=== PATIENT | male | born 1950 | race Caucasian/White ===

== ENCOUNTER 2016-07-09 09:04 | Day surgery (SDC) | payer BC ==
--- NOTE | ~2016-07-09 | EGD ---
EGD REPORT [facility] [address] [address] NAME: NIRANJAN MALIK : 54 STATUS : REG [facility]#: [id number] AGE: 65 ADM/REG DATE : 07/09/16 MR#: [id number] REPORT SERV DATE: 07/09/16 DICTATED BY: HERB CLEMENTS DATE: 07/09/16 REPORT STATUS : Draft TRANSCRIBED BY: [employer] DATE: 07/09/16 [facility] Patient Name: Niranjan Malik Date of : 1950 Attending MD: HERB CLEMENTS, Procedure Date No Time: 07/09/2016 Procedure: Upper EUS Indications: Suspected solid pancreatic neoplasm Referring MD: ETHAN Baez MD Medicines: Monitored Anesthesia Care Complications: No immediate complications. Estimated blood loss: None. Procedure: Pre-Anesthesia Assessment: - ASA Grade Assessment: III - A patient with severe systemic disease. After obtaining informed consent, the endoscope was passed under direct vision. Throughout the procedure, the patient's blood pressure, pulse, and oxygen saturations were monitored continuously. The GIF [id number] [id number] was introduced through the mouth, and advanced to the second part of duodenum. The Endoscope was introduced through the mouth, and advanced to the second part of duodenum. Findings: Endoscopic Finding : The examined esophagus was endoscopically normal. Patchy mild inflammation characterized by erosions was found in the gastric antrum. Biopsies were taken with a cold forceps for histology. Verification of patient identification for the specimen was done. Estimated blood loss was minimal. The exam of the stomach was otherwise normal. The cardia and gastric fundus were normal on retroflexion. The examined duodenum was endoscopically normal. Endosonographic Finding : A mass was identified in the pancreatic body and in the pancreatic tail. The mass was hypoechoic. The mass measured 48 mm by 33 mm in maximal cross-sectional diameter. The endosonographic borders were well-defined. There was sonographic evidence suggesting invasion into the splenic artery (manifested by interface loss less than 15 mm). An intact interface was seen between the mass and the portal vein, superior mesenteric vein, celiac trunk and superior mesenteric artery suggesting a lack of invasion. Fine needle aspiration was performed. Color Doppler imaging was utilized prior to needle puncture to confirm a lack of significant vascular structures within the needle path. Eight passes were made with the 22 gauge needle. No stylet was used. A preliminary EGD REPORT [address] [address] NAME: NIRANJAN MALIK : [birth year] STATUS : REG [facility] PAT#: [id number] AGE: 65 ADM/REG DATE : 07/09/16 MR#: [id number] REPORT SERV DATE: 07/09/16 DICTATED BY: HERB CLEMENTS DATE: 07/09/16 REPORT STATUS : Draft TRANSCRIBED BY: [employer] DATE: 07/09/16 cytologic examination was not performed. There was no sign of significant endosonographic abnormality in the common bile duct. Minimal hyperechoic material consistent with sludge was visualized endosonographically in the gallbladder body. The pancreatic duct had a dilated endosonographic appearance in the tail of the pancreas. The pancreatic duct measured up to 7 mm in diameter. No lymphadenopathy seen. There was no sign of significant endosonographic abnormality in the examined duodenum. Endosonographic images of the stomach were unremarkable. There was no sign of significant endosonographic abnormality in the esophagus. Impression: - Normal esophagus. - Gastritis. Biopsied. - Normal examined duodenum. - A mass was identified in the pancreatic body and in the pancreatic tail. - There was no sign of significant pathology in the common bile duct. - Hyperechoic material consistent with sludge was visualized endosonographically in the gallbladder body. - The pancreatic duct had a dilated endosonographic appearance in the tail of the pancreas. The pancreatic duct measured up to 7 mm in diameter. - There was no sign of significant pathology in the examined duodenum. - Endosonographic images of the stomach were unremarkable. - There was no sign of significant pathology in the esophagus. Recommendation: - Return to previous diet. - Continue present medications. - Await cytology results and await path results. Procedure Code(s): --- Professional --- 28282, Esophagogastroduodenoscopy, flexible, transoral; with transendoscopic ultrasound-guided intramural or transmural fine needle aspiration/biopsy(s) (includes endoscopic ultrasound examination of the esophagus, stomach, and either the duodenum or a surgically altered stomach where the jejunum is examined distal to the anastomosis) Diagnosis Code(s): --- Professional --- EGD REPORT [facility] [address] [place] [address] [place]. [address] NAME: NIRANJAN MALIK : [birth year] STATUS : REG [facility]#: [id number] AGE: 65 ADM/REG DATE : 07/09/16 MR#: [id number] REPORT SERV DATE: 07/09/16 DICTATED BY: HERB CLEMENTS DATE: 07/09/16 REPORT STATUS : Draft TRANSCRIBED BY: [employer] DATE: 07/09/16 K29.70, Gastritis, unspecified, without bleeding K86.8, Other specified diseases of pancreas K83.8, Other specified diseases of biliary tract R93.3, Abnormal findings on diagnostic imaging of other parts of digestive tract CPT copyright 2013 [employer]. All rights reserved. The codes documented in this report are preliminary and upon clerical assigner review may be revised to meet current compliance requirements. HERB CLEMENTS, 07/09/2016 11:33 AM Number of Addenda: 0 Note Initiated On: 07/09/2016 10:52 AM Scope Withdrawal Time 0 hours 0 minutes [address] [place] [address]
[~2016-07-09 09:04] MED LIST: ACTOPLUS M15 MG/850 PO; AMARYL4 PO; ASAB PO; CARDURA1 MG PO; DILT-XR240 MG PO; LOP50 PO; MULTIPLE VIT; PLAVIX PO; PRAVACHOL40 MG PO; PRIN20 PO; Potassium PO; TESSALON200 MG PO
[2016-07-26] MEDS ORDERED: TOPXL50 PO (10:53)
[2016-07-26] MEDS ORDERED: AMARYL4 PO (10:54)
[2016-08-20] MEDS ORDERED: TRESIBA FL100 UNIT/1 SC (15:48)
[2016-08-20] MEDS ORDERED: PR25 PO (15:57)
[2016-08-30] MEDS ORDERED: REG PO (09:21)
[2016-08-30] MEDS ORDERED: GLUCPH8 PO (09:22)
[2016-08-30] MEDS ORDERED: MIRALAX POWDER1 PKT PO (09:23)
[2016-09-06] MEDS ORDERED: NEUR300 PO (15:25)
[2016-09-06] MEDS ORDERED: NOVOLOG SC ×2 (15:27→15:29)
[2016-09-06] MEDS ORDERED: LEVEMIR SC (15:27)
[2016-09-06] MEDS ORDERED: PEP20 PO (15:29)
[2016-09-06] MEDS ORDERED: ULTRAM50 PO (15:30)
[2016-09-27] MEDS ORDERED: ZYRTEC ALLGY10 MG PO (08:59)
[2016-10-04] MEDS ORDERED: LEVAQUIN750 MG PO (15:45)
[2016-10-04] MEDS ORDERED: FLAG500TAB PO (15:45)
[2016-10-08] MEDS ORDERED: ASAB PO (15:12)
== END 2016-07-09 23:59 | disposition home or self-care (01) ==
LOC: DMU 09:04
PROVIDERS: Internal Medicine Gastroenterology
PROC: 0FBG4ZX Excision of Pancreas, Percutaneous Endoscopic Approach, Diagnostic (ICD-10-PCS; principal; 2016-07-09 14:30)
DX: C25.1 Malignant neoplasm of body of pancreas (principal); K29.70 Gastritis, unspecified, without bleeding; K86.89 Other specified diseases of pancreas; K83.8 Other specified diseases of biliary tract; R93.3 Abnormal findings on diagnostic imaging of other parts of digestive tract; I25.10 Atherosclerotic heart disease of native coronary artery without angina pectoris; I10 Essential (primary) hypertension; E11.9 Type 2 diabetes mellitus without complications; G47.33 Obstructive sleep apnea (adult) (pediatric); M19.90 Unspecified osteoarthritis, unspecified site; E78.00 Pure hypercholesterolemia, unspecified; I49.9 Cardiac arrhythmia, unspecified; I42.9 Cardiomyopathy, unspecified; Z87.891 Personal history of nicotine dependence; Z95.5 Presence of coronary angioplasty implant and graft; Z95.1 Presence of aortocoronary bypass graft; Z98.890 Other specified postprocedural states; Z88.1 Allergy status to other antibiotic agents; Z88.8 Allergy status to other drugs, medicaments and biological substances; Z79.899 Other long term (current) drug therapy; Z79.82 Long term (current) use of aspirin
CPT/HCPCS: 82962; 88173; 88305; C1725

== ENCOUNTER 2016-07-27 06:02 | Inpatient (IN) | payer BC ==
[2016-07-23 14:51] LABS: BASOPHILS 0.1 %; BASOPHILS ABSOLUTE 0.01 10/3/uL (0.0-0.16); EOSINOPHILS 2.6 %; EOSINOPHILS ABSOLUTE 0.18 10/3/uL (0.0-0.53); HEMOGLOBIN 11.9 g/dL (13.6-17.8); IMMATURE GRANULOCYTES 0.1 %; IMMATURE GRANULOCYTES ABSOLUTE 0.01 10/3/uL (0.0-0.11); LYMPHOCYTES 21.7 %; LYMPHOCYTES ABSOLUTE 1.52 10/3/uL (0.67-4.30); MEAN CORPUSCULAR HEMOGLOB 29.5 pg (26.0-34.0); MEAN PLATELET VOLUME 10.1 fL (9.2-13.0); MONOCYTES 5.9 %; MONOCYTES ABSOLUTE 0.41 10/3/uL (0.21-1.20); NEUTROPHILS 69.6 %; NEUTROPHILS ABSOLUTE 4.87 10/3/uL (2.02-8.40); PLATELET COUNT 131 10/3/uL (150-400); RBC DISTRIBUTION WIDTH 13.1 % (12.0-16.0); RED CELL COUNT 4.04 10/6/uL (4.7-6.1)
[2016-07-23 14:52] LABS: MANUAL DIFF NO %; MEAN CORPUSCULAR VOLUME 86.6 fL (80-100)
[2016-07-23 15:01] LABS: INTERNATIONAL NORMAL RATI 1.2 UNITS (-); PARTIAL THROMBO TIME 29.1 SEC (22.5-37.2); PROTIME (NOT ORD) 15.1 SEC (12.0-14.5)
[2016-07-23 15:08] LABS: A/G RATIO 1.2 (0.7-1.9); ALBUMIN 3.5 G/DL (3.5-5.0); ALKALINE PHOSPHATASE 83 U/L (45-117); BUN (BLOOD UREA NITROGEN) 13 MG/DL (6-23); CALCIUM, SERUM 8.7 MG/DL (8.5-10.4); CHLORIDE, SERUM 104 MMOL/L (96-112); CO2 (CARBON DIOXIDE) 35 MMOL/L (24-34); CREATININE 0.74 MG/DL (0.70-1.30); GFR AFRICAN AMERICAN 114 ML/MIN (>=60); GFR NON AFRICAN AMERICAN 98 ML/MIN (>=60); GLOBULIN 2.9 G/DL (2.5-4.1); GLUCOSE, SERUM 160 MG/DL (60-99); POTASSIUM, SERUM 4.2 MMOL/L (3.5-5.3); SGOT(AST) 19 U/L (5-40); SGPT(ALT) 24 U/L (5-65); SODIUM, SERUM 139 MMOL/L (135-148); TOTAL BILIRUBIN 0.4 MG/DL (0-1.2); TOTAL PROTEIN 6.4 G/DL (6.0-8.5)
--- NOTE | ~2016-07-27 | PREOPHP ---
PreOp History and Physical [facility] [address] [place]. [address] NAME: NIRANJAN MALIK : 54 STATUS : PRE IN PAT#: [id number] AGE: 65 ADM/REG DATE : MR#: [id number] REPORT SERV DATE: 07/27/16 DICTATED BY: KINGS CHANDLER III DATE: 07/21/16 REPORT STATUS : Draft TRANSCRIBED BY: MODL DATE: 07/21/16 HISTORY OF PRESENT ILLNESS: This 65-year-old male comes to the operating room for distal pancreatectomy, splenectomy, for biopsy proven cancer of the pancreas. The patient recently had a CT scan of the chest to followup for pneumonia. He was found incidentally to have a pancreatic mass. Workup revealed this to be a pancreatic adenocarcinoma. The patient's workup shows no evidence for metastatic disease. The patient is felt to have a potentially curable cancer of the distal pancreas. He comes to operating room now for distal pancreatectomy and splenectomy. The tumor is contiguous with the left adrenal gland and has been explained to the patient that a left adrenalectomy may be required. PAST MEDICAL HISTORY: 1. Hypertension. 2. Diabetes mellitus. 3. Coronary artery disease. PAST SURGICAL HISTORY: Status post coronary artery bypass graft. MEDICATIONS: Aspirin, Plavix, diltiazem, doxazosin, glimepiride, metformin, metoprolol, potassium, pravastatin, and lisinopril. FAMILY HISTORY: Unremarkable. SOCIAL HISTORY: The patient has a previous history of tobacco use. No history of alcohol use. ALLERGIES: DOXYCYCLINE, ZOCOR, AND HYDROCHLOROTHIAZIDE. REVIEW OF SYSTEMS: The patient's 14-point review of systems essentially unremarkable. He has had no abdominal pain or back pain or weight loss. PHYSICAL EXAMINATION: GENERAL: This is a male, in no acute distress. He is somewhat large. He is alert and oriented x3. VITAL SIGNS: Blood pressure 129/80, pulse 80, and temperature 97.6. HEENT: Unremarkable. NEUROLOGIC: Cranial nerves 2 through 12 are normal. LUNGS: Clear. CARDIAC: Normal. ABDOMEN: Soft. Nontender. No masses. LABORATORY DATA: CT scan of the abdomen and pelvis, which I reviewed shows a 6.7 x 4.7 cm pancreatic mass. The mass includes the pancreatic duct and distal of the duct is dilated. The mass appears to involve the splenic vein and the splenic artery. It is contiguous with the left adrenal gland. There is no evidence for disease outside of this area. Biopsy of PreOp History and Physical [address] [address] NAME: NIRANJAN MALIK : 54 STATUS : PRE IN PAT#: [id number] AGE: 65 ADM/REG DATE : MR#: [id number] REPORT SERV DATE: 07/27/16 DICTATED BY: KINGS CHANDLER III DATE: 07/21/16 REPORT STATUS : Draft TRANSCRIBED BY: MANASA DATE: 07/21/16 this mass shows moderate differentiated ductal carcinoma. ASSESSMENT: 65-year-old male with: 1. Biopsy-proven cancer of the distal pancreas. 2. Coronary artery disease. 3. History of coronary artery bypass graft. 4. Hypertension. 5. Diabetes mellitus. PLAN: The patient comes to the operating room now for distal pancreatectomy with splenectomy. This procedure, the risks, benefits, and alternatives, including not limited to the risk for bleeding, infection, enterotomy, injury to any abdominal structure, postop small bowel obstruction, ileus, incisional hernia or dehiscence, pancreatic ascites, pancreatic fistula formation, left upper quadrant abscess requiring reoperation, injury to the stomach, gastroparesis or gastric outlet obstruction, overwhelming post splenectomy sepsis, and unforeseen complications including deep venous thrombosis, pulmonary embolus, myocardial infarction, stroke, pneumonia, and , have been fully and completely explained to the patient and his family. The fact that this is a major operation with risk for major morbidity and mortality has been explained. The expected length of recovery was explained. The patient and family had questions, which were answered. They understand the risks and agreed to surgery as planned. It should be noted the recent EUS showed an intact interface between the mass in the portal vein, superior mesenteric vein, and celiac artery suggesting lack of invasion. The patient's questions have been answered. He clearly understands the risks and agrees to surgery as planned. OMARI/MANASA Kings Chandler III, M.D. / [id number]
--- NOTE | ~2016-07-27 | DS ---
Discharge Summary [facility] [address] [facility] [place]. [address] NAME: NIRANJAN MALIK : 54 STATUS : DIS IN PAT#: [id number] AGE: 65 ADM/REG DATE : 07/27/16 MR#: [id number] REPORT SERV DATE: 08/07/16 DICTATED BY: KINGS CHANDLER III DATE: 08/06/16 REPORT STATUS : Draft TRANSCRIBED BY: MODKarli DATE: 08/06/16 Data Collection from hospitalization DISCHARGE DIAGNOSES: 1. Biopsy-proven cancer of the distal pancreas. 2. Hypertension. 3. Diabetes mellitus. 4. Coronary artery disease. 5. Anemia. 6. Thrombocytopenia. 7. Postop fever, resolved. CONSULTATIONS: Mario Guo M.D. PROCEDURES PERFORMED: Distal pancreatectomy with splenectomy and left adrenalectomy on 07/27/2016. PATHOLOGY: ( ). MEDICATIONS: 1. Aspirin 81 mg daily. 2. Plavix 75 mg daily. 3. Diltiazem ER 240 mg every morning. 4. Cardura 2 mg twice daily. 5. Norvasc 5 mg daily. 6. Amaryl 4 mg before breakfast and supper. 7. Prinivil 20 mg every morning. 8. Toprol-XL 50 mg at bedtime. 9. Actoplus one twice daily. 10.Glucophage 850 mg with breakfast and supper. 11.Levemir 5 units subcutaneously daily. 12.Multiple vitamin without minerals one daily. 13.Potassium one tablet daily. 14.Pravachol 40 mg at bedtime. CONDITION AT DISCHARGE: Upon discharge he did appear to be doing well and had no complaints. DISPOSITION: He had been discharged home to continue a soft 1800 calorie ADA diet with activity as discussed. He was to follow up with me in the office in one to two weeks and was to call for the appointment. HOSPITAL COURSE: This 65-year-old male recently had a CT scan of the chest to follow up for pneumonia, he was found incidentally to have a pancreatic mass. Workup revealed this to be a pancreatic adenocarcinoma. His workup showed no evidence for metastatic disease. He was felt to have a potentially curable cancer of the distal pancreas. He was now admitted for distal pancreatectomy and splenectomy. His tumor was contiguous with the left adrenal gland and had been explained to the patient that a left adrenalectomy may also be required. He was admitted for surgery and further treatment. Upon admission to the hospital, he had been Discharge Summary [address] [place]. [address] NAME: NIRANJAN MALIK : 54 STATUS : DIS IN PAT#: [id number] AGE: 65 ADM/REG DATE : 07/27/16 MR#: [id number] REPORT SERV DATE: 08/07/16 DICTATED BY: KINGS CHANDLER III DATE: 08/06/16 REPORT STATUS : Draft TRANSCRIBED BY: MANASA DATE: 08/06/16 taken to the operating room where he did undergo the above procedure. He tolerated this well and was transferred to the recovery room. On postop day #1, the patient was alert and comfortable. He was afebrile and his vital signs were stable. His blood pressure was noted to have been elevated the previous day. He had been placed on sips of clear liquids. He had also been evaluated by Dr. Mario Guo for medical management, and was noted to have been quite hypertensive with a systolic blood pressure in the 210s. He was given a dose of labetalol with minimal improvement in his blood pressure and he did endorse taking all of his medications. He had been placed on Cardene drip to titrate for systolic blood pressure less than 180. He was also to continue his home antihypertensives as well. His home glimepiride was placed on hold and he had been placed on level 1 sliding scale insulin and was to be placed on a diabetic diet when he was resumed on a diet. Plavix and aspirin were also on hold for the time being. He was however continued on his home statin and lisinopril. He had been placed on SCDs for DVT prophylaxis, and Protonix for gastrointestinal prophylaxis. On postop day #2, he was noted to have some pain from the NG tube. He was however alert and comfortable, and was noted to have had a temperature up to 101. His hematocrit was at 28. The NG tube was removed and he was placed on a clear liquid diet. His Momin catheter was also removed. On postop day #3, he did appear to be doing well and his diet was advanced further to a full liquid diet, and he had been transferred to the floor. His WBCs had dropped from 16.4 to 12.8. On postop day #4, he had no complaints and he continued to do well. His diet was still being slowly advanced. He was afebrile and his vital signs were stable. He had been placed on amlodipine 5 mg daily and his sliding scale insulin was increased to level 3. On 08/01/2016, he did continue to do well and had only minimal pain noted. He was afebrile and his vital signs had remained stable. IV fluids were discontinued as was [employer]. He did remain in stable condition, and as he continued to do well he was then discharged on 08/02/2016 with the above instructions. Information collected by: Ale Lozano. I submit the above information as my discharge summary. SATHISH/MANASA Kings Chandler III, M.D. / [id number] CC: Ghada Campuzano III, DO
--- NOTE | ~2016-07-27 | OP ---
Record Of Operation [facility] [address] [place]. [address] NAME: NIRANJAN MALIK : 54 STATUS : ADM IN PAT#: [id number] AGE: 65 ADM/REG DATE : 07/27/16 MR#: [id number] REPORT SERV DATE: 07/28/16 DICTATED BY: KINGS CHANDLER III DATE: 07/27/16 REPORT STATUS : Draft TRANSCRIBED BY: MODL DATE: 07/27/16 DATE OF PROCEDURE: 07/27/2016 PREOPERATIVE DIAGNOSIS: Biopsy-proven cancer of the distal pancreas. POSTOPERATIVE DIAGNOSIS: Biopsy-proven cancer of the distal pancreas, extensive pancreatic cancer involving the tail and body of the pancreas and the left adrenal gland. PROCEDURES: Distal pancreatectomy with splenectomy and left adrenalectomy. SURGEON: Kings Chandler M.D. ANESTHESIA: General with intubation. COMPLICATIONS: None. ESTIMATED BLOOD LOSS: 1800 mL. SPECIMENS: Distal pancreas from the portal vein to the tail of pancreas, spleen, and left adrenal gland. DRAINS: Florin-Bowens in abdominal cavity, Pal in subcutaneous tissue. LAP AND SPONGE COUNT: Correct x3. BRIEF HISTORY: This 65-year-old male presented with a biopsy-proven cancer of the tail of pancreas. Radiographically, this appeared to be a large cancer. It appeared to involve the left adrenal vein. It was apparent that the splenic artery and splenic vein were encased by the tumor. There was no evidence for distant disease. Although, this was a large tumor, it was felt possibly to be resectable. It was felt that distal pancreatectomy and splenectomy were indicated if technically possible based on the radiographic imaging preoperatively. The fact that this was a major operation with risk for major morbidity and mortality was fully and completely explained to the patient and family prior to the surgery. The fact that the tumor might not be resectable was explained. The procedure risks, benefits, and alternatives, including but not limited to the risk for bleeding, infection, enterotomy, injury to any abdominal structure, postop small bowel obstruction, ileus, incisional hernia, dehiscence, pancreatic fistula formation, pancreatic ascites, overwhelming post splenectomy sepsis of the left upper quadrant or abdominal abscess, injury to the stomach, injury to common bile duct, gastroparesis, gastric outlet obstruction, positive margins, possibility of the tumor might not be resectable, and unforeseen complications including deep venous thrombosis, pulmonary embolus, myocardial infarction, stroke, pneumonia, and were fully and completely explained to the patient's family prior to the surgery. The fact that this was a major operation with high risk for morbidity and mortality was explained. The fact that a left adrenalectomy would likely be required was explained. The expected length of the recovery was explained. The patient and family had questions which were answered. They fully understood the risks and agreed to the surgery as planned. Record Of Operation [facility] [place]. [address] NAME: NIRANJAN MALIK : 54 STATUS : ADM IN PAT#: [id number] AGE: 65 ADM/REG DATE : 07/27/16 MR#: [id number] REPORT SERV DATE: 07/28/16 DICTATED BY: KINGS CHANDLER III DATE: 07/27/16 REPORT STATUS : Draft TRANSCRIBED BY: MANASA DATE: 07/27/16 FINDINGS: The patient had an extremely large aggressive appearing cancer involving the majority of the body and tail of the pancreas. The tumor required resection of the pancreas just anterior to the portal vein. The pancreatic margins were clear. The tumor appeared to be invading the left adrenal gland and a left adrenalectomy was performed. There was no evidence for distant disease. The retroperitoneum was very hard and fibrotic, and it was unclear if this was related to malignancy or inflammatory changes. DESCRIPTION OF PROCEDURE: After being properly identified, and after discussing the risks and benefits of the surgery to the patient's family again in the preoperative area, he was taken to the operating room, and placed in the supine position on the operating room table. General anesthesia was administered. He was intubated without difficulty. A Momin catheter and NG tube were inserted. The abdomen was prepped and draped sterilely in the usual fashion. After an appropriate "time-out" per JCAHO standards, a left subcostal incision was made about 2 cm below the costal margin. The incision was continued through the subcutaneous tissue. Hemostasis was controlled with the cautery. The incision was continued through all layers of fascia. The abdominal cavity was entered. There was no evidence for carcinomatosis or peritoneal implants. The liver appeared to be normal. The stomach was elevated superiorly. The gastrocolic ligament was divided beginning at the pylorus and continuing to the proximal stomach to the GE junction. This way the entire greater curve of the stomach was exposed. The lesser sac was inspected. There was noted be extremely large and hard cancer involving the majority of the body and tail of the pancreas. Initially, we were concerned that this would not be resectable. However, on further dissection, we were able to identify a plane anterior to the portal vein for division of the pancreas, but the pancreas appeared to be normal. The retroperitoneum was very hard and fixed, but it appeared to be that the tumor could be resected. The splenocolic ligament was divided using Harmonic scalpel. The splenic flexure of the colon was reflected inferiorly. We dissected along the inferior border of the pancreas using sharp dissection. The tumor was very large and bulky involving in the majority of the pancreas from its junction with the portal vein distally. The tumor extended posteriorly. On careful dissection, it was clear that the left adrenal gland was involved and had to be resected. We dissected along the superior border of the pancreas. The splenic artery was identified. There appeared to be encased in tumor. We dissected it proximally to its junction with the celiac axis. The splenic artery was isolated, ligated, and divided. It was doubly ligated with 0 sutures, and then ligated with a 2-0 silk pursestring, and then oversewn with a 2-0 silk suture. The splenic vein was similarly isolated, ligated, and divided. We then divided the pancreas directly anterior to the portal vein after the appropriate plane had been made. It was divided with a TA-60 stapler. We then mobilized the spleen by dividing the peritoneal reflections posteriorly. The dissection was continued posterior to the pancreas. The left adrenal gland was identified and resected en bloc with the tumor. This way the entire specimen consisting of the body and tail of the pancreas, the spleen, and the left adrenal gland were removed. At one portion, the tumor appeared to be adherent to the greater curve of the stomach proximally. This did not appear to be a christofer invasion of the stomach, and the stomach was dissected off this, and the margin was felt to be clear. The specimen was removed and sent to Pathology. It was interpreted that Record Of Operation [facility] [address] [facility] [place]. [address] NAME: NIRANJAN MALIK : 54 STATUS : ADM IN [facility]#: [id number] AGE: 65 ADM/REG DATE : 07/27/16 MR#: [id number] REPORT SERV DATE: 07/28/16 DICTATED BY: GERALDINE HUBBARDKINGS HANNAH DATE: 07/27/16 REPORT STATUS : Draft TRANSCRIBED BY: MANASA DATE: 07/27/16 the pancreatic margin where it was divided was clear. The abdominal cavity was irrigated copiously with saline. Hemostasis was assured. A Florin-Bowens drain was brought through a separate stab wound, and placed in the left upper quadrant. Evicel glue was placed in the bed to help with hemostasis. Hemostasis was meticulous and thoroughly assured in all areas. Once hemostasis was assured, the fascia was closed in two layers with a running looped #1 PDS suture, subcu tissue was closed with a running 3-0 chromic suture over a [place] drain, which was brought through the lateral aspect of the incision. The skin was closed with running subcuticular 4-0 Monocryl stitch. Dressings were applied. Anesthesia was reversed, and the patient was taken to the recovery room in stable condition. He tolerated the procedure well. His family was informed the results of the surgery. The patient will remain in the hospital for postoperative care. ADDENDUM: It should be noted that this procedure was extremely difficult secondary to the large size of the tumor with invasion into the adrenal gland and adjacent structures. This extended the length of the procedure by 100% and increased blood loss greatly. For this reason, modifier 22 was added to the procedure code. RHJ/MANASA Kings Chandler III, M.D. / [id number] CC: Ghada Campuzano III, MD Derek W Holland, M.D.
--- NOTE | ~2016-07-27 | OP ---
Record Of Operation [facility] [address] [place] [place]. [address] NAME: NIRANJAN MALIK : 54 STATUS : ADM IN PAT#: [id number] AGE: 65 ADM/REG DATE : 07/27/16 MR#: [id number] REPORT SERV DATE: 07/27/16 DICTATED BY: KINGS CHANDLER III DATE: 07/27/16 REPORT STATUS : Draft TRANSCRIBED BY: MODKarli DATE: 07/27/16 DATE OF PROCEDURE: 07/27/2016 ADDENDUM It should be noted that this procedure was extremely difficult secondary to the large size of the tumor with invasion into the adrenal gland and adjacent structures. This extended the length of the procedure by 100% and increased blood loss greatly. For this reason, modifier 22 was added to the procedure code. OMARI/MANASA Kings Chandler III, M.D. / [id number] CC: Ghada Campuzano III
--- NOTE | ~2016-07-27 | CN ---
Consultation Report [facility] [address] [place]. [address] NAME: NIRANJAN MALIK : 54 STATUS : ADM IN PAT#: [id number] AGE: 65 ADM/REG DATE : 07/27/16 MR#: [id number] REPORT SERV DATE: 07/27/16 DICTATED BY: MIKI GUO DATE: 07/27/16 REPORT STATUS : Draft TRANSCRIBED BY: MODL DATE: 07/27/16 CONSULT DATE OF CONSULTATION: 07/27/2016 REASON FOR CONSULTATION: Medical management. HISTORY OF PRESENT ILLNESS: The patient is a 65-year-old gentleman with a past medical history of hypertension, type 2 diabetes, and coronary disease, who was found to have an incidental pancreatic mass on a followup CT scan for pneumonia and further workup revealed it to be a pancreatic adenocarcinoma. The tumor on CT was contiguous with the left adrenal gland. Dr. Summers performed a distal pancreatectomy with splenectomy and left adrenalectomy earlier today. The patient tolerated the procedure well. The patient returned to the medical intensive care unit, extubated, and on no pressors. At the time of my interview, the patient was hypertensive with systolic blood pressure in the 210s. He endorses being on several medications for hypertension and took all of them this morning. He currently states that this pain is approximately 5/10, otherwise he has a dry throat, but feels well. He denies any headache, blurry vision, nausea, or vomiting. He denies any chest pain or shortness of breath. PAST MEDICAL HISTORY: 1. Coronary artery disease. 2. Type 2 diabetes. 3. Hypertension. 4. Status post coronary artery bypass grafting. HOME MEDICATIONS: See medication reconciliation form. ALLERGIES: DOXYCYCLINE, ZOCOR, AND HYDROCHLOROTHIAZIDE. FAMILY HISTORY: Reviewed and negative for coronary disease. SOCIAL HISTORY: Remote history of tobacco use. No alcohol or IV drug abuse. REVIEW OF SYSTEMS: A 10-point review of systems is negative except as mentioned in HPI. PHYSICAL EXAMINATION: VITAL SIGNS: Afebrile. Heart rate 78, respiratory rate 16, blood pressure 201/97. GENERAL: No acute distress. HEENT: Pupils equal, round, and reactive to light. Extraocular movements intact. Oropharynx clear. Moist mucous membranes. NECK: Supple. Nontender. No lymphadenopathy. No thyromegaly. No jugular venous distention. Consultation Report [facility] [address] [place]. [address] NAME: NIRANJAN MALIK : 54 STATUS : ADM [facility]#: [id number] AGE: 65 ADM/REG DATE : 07/27/16 MR#: [id number] REPORT SERV DATE: 07/27/16 DICTATED BY: MIKI GUO DATE: 07/27/16 REPORT STATUS : Draft TRANSCRIBED BY: MANASA DATE: 07/27/16 LUNGS: Clear to auscultation bilaterally. CARDIOVASCULAR: Regular rate and rhythm. No murmurs, rubs, or gallops. ABDOMEN: Soft, nontender, nondistended. Positive bowel sounds. No hepatosplenomegaly. EXTREMITIES: No cyanosis, clubbing, or edema. NEURO: Alert and oriented x3. Cranial nerves intact. PSYCH: Mood appropriate. LABS AND IMAGING: CBC remarkable for white count 11,000, 91% neutrophils. INR 1.3. Metabolic profile unremarkable. Chest x-ray shows some bibasilar atelectasis. ASSESSMENT AND PLAN: The patient is a 65-year-old gentleman with past medical history of coronary artery disease, type 2 diabetes, and hypertension, who is now postop day #0 status post distal pancreatectomy with splenectomy, and left adrenalectomy. 1. Hypertension. The patient currently is quite hypertensive with a systolic blood pressure in the 210s. He has been given one dose of labetalol with minimal improvement in his blood pressure. He does endorse taking all of his medications today. I will like to place him on a Cardene drip overnight and titrate for systolic blood pressure less than 180. We will also continue his home antihypertensives as well. 2. Type 2 diabetes. Currently holding the patient's home glimepiride, we will place him on level one sliding scale. Diabetic diet when Dr. Summers says that he can eat. 3. Coronary disease. Currently holding the patient's Plavix and aspirin. We will restart these when Dr. Summers is okay with it. We will continue his home statin and lisinopril. 4. The patient will be on SCDs for DVT prophylaxis. Protonix for gastrointestinal prophylaxis. Appreciate the consult. We will continue follow along the patient with you. Please call if you have any questions. JOANIE/MODL Miki Guo MD / [id number] CC: Ghada Campuzano III, NATHAN
[~2016-07-27 06:02] MED LIST changes: +TOPXL50 PO
[2016-07-27 13:00] LABS: BASOPHILS 0 %; EOSINOPHILS 0.1 %; EOSINOPHILS ABSOLUTE 0.01 10/3/uL (0.0-0.53); HEMATOCRIT 32.7 % (40.0-51.0); HEMOGLOBIN 11.4 g/dL (13.6-17.8); IMMATURE GRANULOCYTES 0.3 %; IMMATURE GRANULOCYTES ABSOLUTE 0.03 10/3/uL (0.0-0.11); LYMPHOCYTES 4.1 %; LYMPHOCYTES ABSOLUTE 0.48 10/3/uL (0.67-4.30); MANUAL DIFF NO %; MEAN CORPUS HGB CONC 34.9 g/dL (32.0-36.0); MEAN CORPUSCULAR HEMOGLOB 29.8 pg (26.0-34.0); MEAN CORPUSCULAR VOLUME 85.6 fL (80-100); MEAN PLATELET VOLUME 10.4 fL (9.2-13.0); MONOCYTES 4.4 %; MONOCYTES ABSOLUTE 0.52 10/3/uL (0.21-1.20); NEUTROPHILS 91.1 %; PLATELET COUNT 79 10/3/uL (150-400); RBC DISTRIBUTION WIDTH 13.4 % (12.0-16.0); RED CELL COUNT 3.82 10/6/uL (4.7-6.1); WHITE BLOOD CELLS 11.8 10/3/uL (4.5-10.5)
[2016-07-27 13:06] LABS: INTERNATIONAL NORMAL RATI 1.3 UNITS (-); PROTIME (NOT ORD) 16.2 SEC (12.0-14.5)
[2016-07-27 13:11] LABS: BUN (BLOOD UREA NITROGEN) 11 MG/DL (6-23); CALCIUM, SERUM 7.4 MG/DL (8.5-10.4); CHLORIDE, SERUM 109 MMOL/L (96-112); CO2 (CARBON DIOXIDE) 28 MMOL/L (24-34); GFR AFRICAN AMERICAN 124 ML/MIN (>=60); GFR NON AFRICAN AMERICAN 107 ML/MIN (>=60); GLUCOSE, SERUM 237 MG/DL (60-99); POTASSIUM, SERUM 4.3 MMOL/L (3.5-5.3); SODIUM, SERUM 140 MMOL/L (135-148)
[2016-07-27 16:54] LABS: HEMOGLOBIN 11.9 g/dL (13.6-17.8)
[2016-07-27 22:41] LABS: HEMATOCRIT 32.4 % (40.0-51.0); HEMOGLOBIN 11.4 g/dL (13.6-17.8)
[2016-07-28 03:58] LABS: BASOPHILS 0.1 %; BASOPHILS ABSOLUTE 0.01 10/3/uL (0.0-0.16); EOSINOPHILS 0.1 %; EOSINOPHILS ABSOLUTE 0.01 10/3/uL (0.0-0.53); HEMATOCRIT 31.6 % (40.0-51.0); HEMOGLOBIN 10.7 g/dL (13.6-17.8); IMMATURE GRANULOCYTES 0.3 %; IMMATURE GRANULOCYTES ABSOLUTE 0.03 10/3/uL (0.0-0.11); LYMPHOCYTES 10.2 %; LYMPHOCYTES ABSOLUTE 1.18 10/3/uL (0.67-4.30); MANUAL DIFF NO %; MEAN CORPUS HGB CONC 33.9 g/dL (32.0-36.0); MEAN CORPUSCULAR HEMOGLOB 29.2 pg (26.0-34.0); MEAN CORPUSCULAR VOLUME 86.3 fL (80-100); MEAN PLATELET VOLUME 10.1 fL (9.2-13.0); MONOCYTES 9.4 %; MONOCYTES ABSOLUTE 1.09 10/3/uL (0.21-1.20); NEUTROPHILS 79.9 %; NEUTROPHILS ABSOLUTE 9.27 10/3/uL (2.02-8.40); PLATELET COUNT 91 10/3/uL (150-400); RBC DISTRIBUTION WIDTH 13.6 % (12.0-16.0); RED CELL COUNT 3.66 10/6/uL (4.7-6.1); WHITE BLOOD CELLS 11.6 10/3/uL (4.5-10.5)
[2016-07-28 04:04] LABS: INTERNATIONAL NORMAL RATI 1.4 UNITS (-)
[2016-07-28 04:15] LABS: A/G RATIO 1.2 (0.7-1.9); ALBUMIN 2.8 G/DL (3.5-5.0); BUN (BLOOD UREA NITROGEN) 10 MG/DL (6-23); CALCIUM, SERUM 7.5 MG/DL (8.5-10.4); CHLORIDE, SERUM 106 MMOL/L (96-112); CO2 (CARBON DIOXIDE) 29 MMOL/L (24-34); CREATININE 0.75 MG/DL (0.70-1.30); GFR AFRICAN AMERICAN 113 ML/MIN (>=60); GFR NON AFRICAN AMERICAN 98 ML/MIN (>=60); GLOBULIN 2.4 G/DL (2.5-4.1); GLUCOSE, SERUM 240 MG/DL (60-99); POTASSIUM, SERUM 4.2 MMOL/L (3.5-5.3); SGOT(AST) 19 U/L (5-40); SGPT(ALT) 19 U/L (5-65); SODIUM, SERUM 140 MMOL/L (135-148); TOTAL BILIRUBIN 0.7 MG/DL (0-1.2); TOTAL PROTEIN 5.2 G/DL (6.0-8.5)
[2016-07-28 04:16] LABS: ALKALINE PHOSPHATASE 51 U/L (45-117)
[2016-07-29 05:09] LABS: BUN (BLOOD UREA NITROGEN) 11 MG/DL (6-23); CALCIUM, SERUM 7.5 MG/DL (8.5-10.4); CHLORIDE, SERUM 106 MMOL/L (96-112); CO2 (CARBON DIOXIDE) 31 MMOL/L (24-34); CREATININE 0.61 MG/DL (0.70-1.30); GFR AFRICAN AMERICAN 123 ML/MIN (>=60); GFR NON AFRICAN AMERICAN 106 ML/MIN (>=60); POTASSIUM, SERUM 4.3 MMOL/L (3.5-5.3); SODIUM, SERUM 140 MMOL/L (135-148)
[2016-07-29 05:10] LABS: GLUCOSE, SERUM 140 MG/DL (60-99)
[2016-07-29 05:42] LABS: BASOPHILS 0.1 %; BASOPHILS ABSOLUTE 0.02 10/3/uL (0.0-0.16); EOSINOPHILS 1.6 %; EOSINOPHILS ABSOLUTE 0.26 10/3/uL (0.0-0.53); HEMATOCRIT 28.7 % (40.0-51.0); HEMOGLOBIN 9.7 g/dL (13.6-17.8); IMMATURE GRANULOCYTES 0.2 %; IMMATURE GRANULOCYTES ABSOLUTE 0.04 10/3/uL (0.0-0.11); LYMPHOCYTES 9.4 %; LYMPHOCYTES ABSOLUTE 1.54 10/3/uL (0.67-4.30); MANUAL DIFF NO %; MEAN CORPUS HGB CONC 33.8 g/dL (32.0-36.0); MEAN CORPUSCULAR HEMOGLOB 30.3 pg (26.0-34.0); MEAN CORPUSCULAR VOLUME 89.7 fL (80-100); MEAN PLATELET VOLUME 10.6 fL (9.2-13.0); MONOCYTES 9.9 %; MONOCYTES ABSOLUTE 1.62 10/3/uL (0.21-1.20); NEUTROPHILS 78.8 %; NEUTROPHILS ABSOLUTE 12.87 10/3/uL (2.02-8.40); PLATELET COUNT 100 10/3/uL (150-400); RBC DISTRIBUTION WIDTH 13.7 % (12.0-16.0); WHITE BLOOD CELLS 16.4 10/3/uL (4.5-10.5)
[2016-07-30 05:09] LABS: BASOPHILS 0.1 %; BASOPHILS ABSOLUTE 0.01 10/3/uL (0.0-0.16); EOSINOPHILS 4.1 %; EOSINOPHILS ABSOLUTE 0.53 10/3/uL (0.0-0.53); HEMATOCRIT 28.8 % (40.0-51.0); HEMOGLOBIN 9.7 g/dL (13.6-17.8); IMMATURE GRANULOCYTES 0.2 %; IMMATURE GRANULOCYTES ABSOLUTE 0.03 10/3/uL (0.0-0.11); LYMPHOCYTES 9.2 %; LYMPHOCYTES ABSOLUTE 1.18 10/3/uL (0.67-4.30); MEAN CORPUS HGB CONC 33.7 g/dL (32.0-36.0); MEAN CORPUSCULAR HEMOGLOB 29.9 pg (26.0-34.0); MEAN CORPUSCULAR VOLUME 88.9 fL (80-100); MEAN PLATELET VOLUME 10.5 fL (9.2-13.0); MONOCYTES ABSOLUTE 1.03 10/3/uL (0.21-1.20); NEUTROPHILS 78.4 %; NEUTROPHILS ABSOLUTE 10.04 10/3/uL (2.02-8.40); RBC DISTRIBUTION WIDTH 13.2 % (12.0-16.0); RED CELL COUNT 3.24 10/6/uL (4.7-6.1); WHITE BLOOD CELLS 12.8 10/3/uL (4.5-10.5)
[2016-07-30 05:10] LABS: MANUAL DIFF NO %; PLATELET COUNT 131 10/3/uL (150-400)
[2016-07-30 05:28] LABS: BUN (BLOOD UREA NITROGEN) 7 MG/DL (6-23); CALCIUM, SERUM 7.7 MG/DL (8.5-10.4); CHLORIDE, SERUM 103 MMOL/L (96-112); CO2 (CARBON DIOXIDE) 29 MMOL/L (24-34); GFR AFRICAN AMERICAN 134 ML/MIN (>=60); GFR NON AFRICAN AMERICAN 115 ML/MIN (>=60); GLUCOSE, SERUM 148 MG/DL (60-99); SODIUM, SERUM 139 MMOL/L (135-148)
[2016-07-31 04:48] LABS: BASOPHILS 0.1 %; BASOPHILS ABSOLUTE 0.01 10/3/uL (0.0-0.16); EOSINOPHILS 5.7 %; EOSINOPHILS ABSOLUTE 0.54 10/3/uL (0.0-0.53); HEMATOCRIT 31.5 % (40.0-51.0); HEMOGLOBIN 10.5 g/dL (13.6-17.8); IMMATURE GRANULOCYTES 0.2 %; IMMATURE GRANULOCYTES ABSOLUTE 0.02 10/3/uL (0.0-0.11); LYMPHOCYTES 12.8 %; LYMPHOCYTES ABSOLUTE 1.22 10/3/uL (0.67-4.30); MEAN CORPUS HGB CONC 33.3 g/dL (32.0-36.0); MEAN CORPUSCULAR HEMOGLOB 29.7 pg (26.0-34.0); MEAN CORPUSCULAR VOLUME 89.2 fL (80-100); MEAN PLATELET VOLUME 10.5 fL (9.2-13.0); MONOCYTES 10.7 %; MONOCYTES ABSOLUTE 1.02 10/3/uL (0.21-1.20); NEUTROPHILS 70.5 %; NEUTROPHILS ABSOLUTE 6.73 10/3/uL (2.02-8.40); RBC DISTRIBUTION WIDTH 13.1 % (12.0-16.0); RED CELL COUNT 3.53 10/6/uL (4.7-6.1); WHITE BLOOD CELLS 9.5 10/3/uL (4.5-10.5)
[2016-07-31 04:51] LABS: MANUAL DIFF NO %; PLATELET COUNT 184 10/3/uL (150-400)
[2016-07-31 05:02] LABS: BUN (BLOOD UREA NITROGEN) 6 MG/DL (6-23); CALCIUM, SERUM 7.9 MG/DL (8.5-10.4); CHLORIDE, SERUM 105 MMOL/L (96-112); CO2 (CARBON DIOXIDE) 27 MMOL/L (24-34); GFR AFRICAN AMERICAN 134 ML/MIN (>=60); GFR NON AFRICAN AMERICAN 115 ML/MIN (>=60); GLUCOSE, SERUM 177 MG/DL (60-99); SODIUM, SERUM 139 MMOL/L (135-148)
[2016-08-01 06:21] LABS: BASOPHILS 0.2 %; BASOPHILS ABSOLUTE 0.02 10/3/uL (0.0-0.16); EOSINOPHILS ABSOLUTE 0.28 10/3/uL (0.0-0.53); HEMATOCRIT 32.2 % (40.0-51.0); HEMOGLOBIN 10.6 g/dL (13.6-17.8); IMMATURE GRANULOCYTES 0.5 %; IMMATURE GRANULOCYTES ABSOLUTE 0.05 10/3/uL (0.0-0.11); LYMPHOCYTES 9.3 %; LYMPHOCYTES ABSOLUTE 0.86 10/3/uL (0.67-4.30); MEAN CORPUS HGB CONC 32.9 g/dL (32.0-36.0); MEAN CORPUSCULAR HEMOGLOB 29.4 pg (26.0-34.0); MEAN CORPUSCULAR VOLUME 89.4 fL (80-100); MEAN PLATELET VOLUME 9.7 fL (9.2-13.0); MONOCYTES ABSOLUTE 0.84 10/3/uL (0.21-1.20); NEUTROPHILS ABSOLUTE 7.24 10/3/uL (2.02-8.40); PLATELET COUNT 231 10/3/uL (150-400); RBC DISTRIBUTION WIDTH 13.3 % (12.0-16.0); WHITE BLOOD CELLS 9.3 10/3/uL (4.5-10.5)
[2016-08-01 06:22] LABS: MANUAL DIFF NO %
[2016-08-01 06:29] LABS: ALBUMIN 2.3 G/DL (3.5-5.0); BUN (BLOOD UREA NITROGEN) 8 MG/DL (6-23); CHLORIDE, SERUM 101 MMOL/L (96-112); CO2 (CARBON DIOXIDE) 27 MMOL/L (24-34); CREATININE 0.55 MG/DL (0.70-1.30); GFR AFRICAN AMERICAN 129 ML/MIN (>=60); GFR NON AFRICAN AMERICAN 111 ML/MIN (>=60); GLUCOSE, SERUM 174 MG/DL (60-99); POTASSIUM, SERUM 4.6 MMOL/L (3.5-5.3); SGOT(AST) 14 U/L (5-40); SGPT(ALT) 17 U/L (5-65); SODIUM, SERUM 135 MMOL/L (135-148); TOTAL BILIRUBIN 0.4 MG/DL (0-1.2); TOTAL PROTEIN 5.7 G/DL (6.0-8.5)
[2016-08-01 06:30] LABS: A/G RATIO 0.7 (0.7-1.9); ALKALINE PHOSPHATASE 68 U/L (45-117); GLOBULIN 3.4 G/DL (2.5-4.1)
[2016-08-02 05:27] LABS: BASOPHILS 0.1 %; BASOPHILS ABSOLUTE 0.01 10/3/uL (0.0-0.16); EOSINOPHILS 5.1 %; EOSINOPHILS ABSOLUTE 0.48 10/3/uL (0.0-0.53); HEMATOCRIT 30.7 % (40.0-51.0); HEMOGLOBIN 10.4 g/dL (13.6-17.8); IMMATURE GRANULOCYTES 0.6 %; IMMATURE GRANULOCYTES ABSOLUTE 0.06 10/3/uL (0.0-0.11); LYMPHOCYTES 11.2 %; LYMPHOCYTES ABSOLUTE 1.06 10/3/uL (0.67-4.30); MEAN CORPUS HGB CONC 33.9 g/dL (32.0-36.0); MEAN CORPUSCULAR HEMOGLOB 29.8 pg (26.0-34.0); MEAN PLATELET VOLUME 9.8 fL (9.2-13.0); MONOCYTES 6.5 %; MONOCYTES ABSOLUTE 0.61 10/3/uL (0.21-1.20); NEUTROPHILS 76.5 %; NEUTROPHILS ABSOLUTE 7.22 10/3/uL (2.02-8.40); RED CELL COUNT 3.49 10/6/uL (4.7-6.1); WHITE BLOOD CELLS 9.4 10/3/uL (4.5-10.5)
[2016-08-02 05:29] LABS: MANUAL DIFF NO %; PLATELET COUNT 301 10/3/uL (150-400)
[2016-08-02 05:41] LABS: A/G RATIO 0.7 (0.7-1.9); ALBUMIN 2.3 G/DL (3.5-5.0); ALKALINE PHOSPHATASE 69 U/L (45-117); BUN (BLOOD UREA NITROGEN) 10 MG/DL (6-23); CALCIUM, SERUM 8.5 MG/DL (8.5-10.4); CHLORIDE, SERUM 100 MMOL/L (96-112); CO2 (CARBON DIOXIDE) 30 MMOL/L (24-34); CREATININE 0.69 MG/DL (0.70-1.30); GFR AFRICAN AMERICAN 117 ML/MIN (>=60); GFR NON AFRICAN AMERICAN 101 ML/MIN (>=60); GLOBULIN 3.3 G/DL (2.5-4.1); GLUCOSE, SERUM 172 MG/DL (60-99); POTASSIUM, SERUM 4.1 MMOL/L (3.5-5.3); SGOT(AST) 19 U/L (5-40); SGPT(ALT) 17 U/L (5-65); SODIUM, SERUM 136 MMOL/L (135-148); TOTAL BILIRUBIN 0.3 MG/DL (0-1.2); TOTAL PROTEIN 5.6 G/DL (6.0-8.5)
[2016-08-02] MEDS ORDERED: GLUCPH8 PO (19:04)
[2016-08-02] MEDS ORDERED: LEVEMIR SC (19:05)
[2016-08-02] MEDS ORDERED: PERCOCET 7.5/321 TAB PO (19:06)
[2016-08-02] MEDS ORDERED: ZOFRAN4 PO (19:07)
[2016-08-02] MEDS ORDERED: NORV5 PO (19:07)
[2016-08-20] MEDS ORDERED: TRESIBA FL100 UNIT/1 SC (15:48)
[2016-08-20] MEDS ORDERED: PR25 PO (15:57)
[2016-08-30] MEDS ORDERED: REG PO (09:21)
[2016-08-30] MEDS ORDERED: GLUCPH8 PO (09:22)
[2016-08-30] MEDS ORDERED: MIRALAX POWDER1 PKT PO (09:23)
[2016-09-06] MEDS ORDERED: NEUR300 PO (15:25)
[2016-09-06] MEDS ORDERED: LEVEMIR SC (15:27)
[2016-09-06] MEDS ORDERED: NOVOLOG SC ×2 (15:27→15:29)
[2016-09-06] MEDS ORDERED: PEP20 PO (15:29)
[2016-09-06] MEDS ORDERED: ULTRAM50 PO (15:30)
[2016-09-27] MEDS ORDERED: ZYRTEC ALLGY10 MG PO (08:59)
[2016-10-04] MEDS ORDERED: LEVAQUIN750 MG PO (15:45)
[2016-10-04] MEDS ORDERED: FLAG500TAB PO (15:45)
[2016-10-08] MEDS ORDERED: ASAB PO (15:12)
== END 2016-08-02 20:00 | disposition home or self-care (01) | DRG 406 ==
LOC: SDC/OF 06:02 → PACU 12:23 → MIC 13:53 → 5SO 07-30 14:03
PROVIDERS: Hospitalist; Internal Medicine Critical Care Medicine; Surgery
PROC: 0GT20ZZ Resection of Left Adrenal Gland, Open Approach (ICD-10-PCS; 2016-07-27)
PROC: 30233K1 Transfusion of Nonautologous Frozen Plasma into Peripheral Vein, Percutaneous Approach (ICD-10-PCS; 2016-07-27)
PROC: 30233N1 Transfusion of Nonautologous Red Blood Cells into Peripheral Vein, Percutaneous Approach (ICD-10-PCS; 2016-07-27)
PROC: 3E0T3CZ (ICD-10-PCS; 2016-07-27)
PROC: 0FBG0ZZ Excision of Pancreas, Open Approach (ICD-10-PCS; principal; 2016-07-27 07:45)
PROC: 07TP0ZZ Resection of Spleen, Open Approach (ICD-10-PCS; 2016-07-27 07:45)
DX: C25.8 Malignant neoplasm of overlapping sites of pancreas (principal); J98.11 Atelectasis; D69.6 Thrombocytopenia, unspecified; I10 Essential (primary) hypertension; E11.9 Type 2 diabetes mellitus without complications; G47.33 Obstructive sleep apnea (adult) (pediatric); R50.82 Postprocedural fever; Z87.01 Personal history of pneumonia (recurrent); Z95.1 Presence of aortocoronary bypass graft; Z79.82 Long term (current) use of aspirin; Z79.02 Long term (current) use of antithrombotics/antiplatelets; Z79.84 Long term (current) use of oral hypoglycemic drugs; Z87.891 Personal history of nicotine dependence; Z90.49 Acquired absence of other specified parts of digestive tract; Z98.890 Other specified postprocedural states; I25.10 Atherosclerotic heart disease of native coronary artery without angina pectoris; Z79.899 Other long term (current) drug therapy; Z88.8 Allergy status to other drugs, medicaments and biological substances; Z88.1 Allergy status to other antibiotic agents; Z95.5 Presence of coronary angioplasty implant and graft
CPT/HCPCS: 36415; 71010; 71020; 80048; 80053; 82330; 82803; 82947; 82962; 83735; 84132; 84295; 85014; 85018; 85025; 85610; 85730; 86850; 86900; 86901; 86920; 87641; 88305; 88309; 88331; 90472; 90620; 90648; 90670; 90734; 93005; 94002; A9270-GY; C1751; C1781; C9113; G0008; G0009; J0690; J1885; J2250; J2270; J2370; J2405; J2710; J2795; J3010; P9016; P9045; P9059

== ENCOUNTER 2016-08-08 06:51 | Inpatient (IN) | payer BC ==
--- NOTE | ~2016-08-08 | DS ---
Discharge Summary [facility] [address] [place]. [address] NAME: NIRANJAN MALIK : 54 STATUS : DIS IN PAT#: [id number] AGE: 65 ADM/REG DATE : 08/08/16 MR#: [id number] REPORT SERV DATE: 08/26/16 DICTATED BY: KINGS CHANDLER III DATE: 08/25/16 REPORT STATUS : Draft TRANSCRIBED BY: MANASA DATE: 08/25/16 Data Collection from hospitalization DISCHARGE DIAGNOSES: 1. Left upper quadrant fluid collection/hematoma. 2. Hypertension. 3. Diabetes mellitus. 4. Coronary artery disease. 5. History of aggressive pancreatic cancer. 6. Former tobacco use. CONSULTATIONS: None. PROCEDURES PERFORMED: 1. CT scan of the abdomen and pelvis with contrast, 08/09/2016. 2. CT scan of the abdomen and pelvis without contrast, 08/12/2016. MEDICATIONS: Norvasc 5 mg daily, Halfprin 81 mg at bedtime, Duricef 500 mg twice a day, Zyrtec 10 mg at bedtime, Plavix 75 mg daily, Cardizem CD 240 mg daily, Cardura 2 mg twice a day, Tammy 180 mg daily, Amaryl 4 mg twice a day, Hurricane 7.5/325 one tablet three times a day as needed, Prinivil 20 mg daily, Toprol-XL 50 mg at bedtime, multivitamins with mineral one tablet at bedtime, Zofran 4 mg every eight hours as needed, Actoplus one tablet with breakfast and supper, Pravachol 40 mg daily, potassium OTC one tablet daily, Benadryl 12.5- 25 mg every six hours as needed. CONDITION AT DISCHARGE: Stable. DISPOSITION: The patient was discharged home on an 1800-calorie soft diabetic diet with activities as instructed. He would follow up with me two weeks following discharge. HOSPITAL COURSE: This is a 65-year-old man, who presented to the hospital emergently with abdominal pain. He complained of a two- to three-day history of abdominal pain. The pain began fairly suddenly and was associated with nausea and vomiting. His pain became progressively worse and he presented to the emergency room. A CT scan of the abdomen and pelvis showed a large lesser sac fluid collection. The patient has a history of distal pancreatectomy and splenectomy, which were performed for a large aggressive pancreatic cancer on 07/27/2016. His postoperative recovery had been uneventful. He had been doing well at the time of discharge. He was tolerating his diet and had normal bowel function. He was admitted to the hospital at this time for further evaluation and treatment. Upon admission, the patient's white blood cell count was elevated at 26.5. Review of the CT scan had shown large lesser sac fluid collection and it was unclear if this was a developing abscess or hematoma. Cultures of the NICOLASA drainage were pending. Parenteral fluids were started as well as empiric antibiotics. It was felt that CT-directed drainage of this fluid collection may be indicated. The patient's final pathology report had shown this to be moderately-differentiated 7.6 cm cancer with extension into the left adrenal gland, which had been removed. The following day, his pain was a bit better. He still had some pain in his back. He did complain of nausea, but no vomiting. He had no shortness of breath. Discharge Summary [address] [address] NAME: NIRANJAN MALIK : 54 STATUS : DIS IN PAT#: [id number] AGE: 65 ADM/REG DATE : 08/08/16 MR#: [id number] REPORT SERV DATE: 08/26/16 DICTATED BY: KINGS CHANDLER III DATE: 08/25/16 REPORT STATUS : Draft TRANSCRIBED BY: MANASA DATE: 08/25/16 White blood cell count was 28.9. Zosyn was continued as well as aspirin and beta-lino. On 08/10/2016, his pain had decreased. He had no nausea, vomiting, or shortness of breath. His T-max was 101.7. Empiric vancomycin was added to his Zosyn. The following day, he said he was feeling much better. He had much less pain. There was minimal drainage from the NICOLASA drain. His diet was going to be advanced. He was encouraged to ambulate. Antibiotics were continued. On 08/12/2016, he described having upper abdominal pain. White count had decreased to 13.2. CT scan of the abdomen and pelvis without contrast was performed. The size of the fluid collection was minimally smaller. He does have a left pleural effusion. The following day, discharge planning was performed. He continued to improve. He was ambulating well. His nausea and vomiting had resolved. On 08/14/2016, he was wanting to go home. He was eating and ambulating well. Discharge instructions were given. Due to his improved and stable condition, he was discharged home with the above-stated instructions. Information collected by: Laureen Arce I submit the above information as my discharge summary. ALEXA/MANASA Kings Chandler III, M.D. / [id number] CC: Ghada Campuzano III, NATHAN
--- NOTE | ~2016-08-08 | HP ---
History And Physical [facility] [address] [address] [place]. [address] NAME: NIRANJAN MALIK : 54 STATUS : ADM IN [facility]#: [id number] AGE: 65 ADM/REG DATE : 08/08/16 MR#: [id number] REPORT SERV DATE: 08/11/16 DICTATED BY: KINGS CHANDLER III DATE: 08/11/16 REPORT STATUS : Draft TRANSCRIBED BY: MODKarli DATE: 08/11/16 DATE OF ADMISSION: 08/08/2016 HISTORY OF PRESENT ILLNESS: This 65-year-old was admitted to the hospital emergently with abdominal pain. The patient complains of a two to three days history of abdominal pain. This pain began fairly suddenly. It was associated with nausea and vomiting. The pain became progressively worse. The patient presented to the emergency room, and a CT scan of the abdomen and pelvis was performed, which showed a large lesser sac fluid collection. The patient is status post a distal pancreatectomy and splenectomy, which were performed for a large aggressive pancreatic cancer on 07/27/2016. The patient's postoperative recovery was uneventful. At the time of discharge, he was doing well. He was afebrile and tolerating the diet well with normal bowel function. PAST MEDICAL HISTORY: 1. History of aggressive pancreatic cancer as above. 2. Hypertension. 3. Diabetes mellitus. 4. Coronary artery disease. PAST SURGICAL HISTORY: Includes coronary artery bypass graft. MEDICATIONS: Aspirin, Plavix, diltiazem, doxazosin, glimepiride, metformin, metoprolol, potassium, pravastatin, and lisinopril. FAMILY HISTORY: Unremarkable. SOCIAL HISTORY: The patient has a previous history of tobacco use. He has no history of alcohol use. ALLERGIES: DOXYCYCLINE, ZOCOR, AND HYDROCHLOROTHIAZIDE. REVIEW OF SYSTEMS: The patient complains of abdominal pain with nausea, vomiting, and poor appetite. His 14- point review of systems is otherwise unremarkable. PHYSICAL EXAMINATION: GENERAL: This is a male, in no acute distress. He is alert and oriented x3. VITAL SIGNS: Blood pressure 144/69, temperature 98.1, and pulse 55. HEENT: Unremarkable. Cranial nerves 2 through 12 are normal. LUNGS: Clear. CARDIAC: Normal. ABDOMEN: Soft and nontender. The patient has a well-healed subcostal incision. A Florin- Bowens drain in place with minimal drainage. History And Physical [address] [place]. [address] NAME: NIRANJAN MALIK : 54 STATUS : ADM IN [facility]#: [id number] AGE: 65 ADM/REG DATE : 08/08/16 MR#: [id number] REPORT SERV DATE: 08/11/16 DICTATED BY: KINGS CHANDLER III DATE: 08/11/16 REPORT STATUS : Draft TRANSCRIBED BY: MANASA DATE: 08/11/16 EXTREMITIES: Normal. LABORATORY DATA: White blood cell count on admission was elevated at 26.5. CT scan of the abdomen and pelvis shows a large lesser sac fluid collection. It is unclear if this is a developing abscess or hematoma. Cultures of the NICOLASA drainage are pending. ASSESSMENT: 1. 65-year-old male with large lesser sac fluid collection, possible hematoma related to previous pancreatectomy and splenectomy, versus possible developing abscess. 2. History of pancreatic cancer status post distal pancreatectomy and splenectomy. 3. Diabetes mellitus. 4. Coronary artery disease. 5. History of coronary artery bypass graft in the past. 6. Hypertension. PLAN: The patient will be admitted and started on parenteral fluids, and antibiotics empirically. CT directed drainage of this fluid collection may be indicated depending on the results of the cultures, and the patient's clinical course. It should be noted that the patient's final pathology report returned showing this to be a moderately differentiated 7.6 cm cancer with extension into the left adrenal gland which was removed. The margins were close, 0/13 lymph nodes were positive for cancer. Again, this plan has been explained to the patient. His questions had been answered. He understands and agrees to this as planned. OMARI/MANASA Kings Chandler III, M.D. / [id number] CC: Ghada Campuzano III
[~2016-08-08 06:51] MED LIST changes: +GLUCPH8 PO; +LEVEMIR SC; +NORV5 PO; +PERCOCET 7.5/321 TAB PO; +ZOFRAN4 PO
[2016-08-08 08:33] LABS: HEMATOCRIT 32.3 % (40.0-51.0); HEMOGLOBIN 10.9 g/dL (13.6-17.8); MEAN CORPUS HGB CONC 33.7 g/dL (32.0-36.0); MEAN CORPUSCULAR HEMOGLOB 29.1 pg (26.0-34.0); MEAN CORPUSCULAR VOLUME 86.4 fL (80-100); MEAN PLATELET VOLUME 9.6 fL (9.2-13.0); PLATELET COUNT 658 10/3/uL (150-400); RBC DISTRIBUTION WIDTH 12.8 % (12.0-16.0); RED CELL COUNT 3.74 10/6/uL (4.7-6.1); WHITE BLOOD CELLS 26.4 10/3/uL (4.5-10.5)
[2016-08-08 08:34] LABS: MANUAL DIFF YES %
[2016-08-08 08:49] LABS: BUN (BLOOD UREA NITROGEN) 8 MG/DL (6-23); CALCIUM, SERUM 9.1 MG/DL (8.5-10.4); CHLORIDE, SERUM 95 MMOL/L (96-112); CO2 (CARBON DIOXIDE) 27 MMOL/L (24-34); CREATININE 0.73 MG/DL (0.70-1.30); GFR AFRICAN AMERICAN 114 ML/MIN (>=60); GFR NON AFRICAN AMERICAN 99 ML/MIN (>=60); POTASSIUM, SERUM 4.1 MMOL/L (3.5-5.3); SGOT(AST) 24 U/L (5-40); SGPT(ALT) 28 U/L (5-65); SODIUM, SERUM 132 MMOL/L (135-148); TOTAL BILIRUBIN 0.4 MG/DL (0-1.2); TOTAL PROTEIN 6.7 G/DL (6.0-8.5)
[2016-08-08 08:50] LABS: A/G RATIO 0.7 (0.7-1.9); ALBUMIN 2.8 G/DL (3.5-5.0); ALKALINE PHOSPHATASE 91 U/L (45-117); GLOBULIN 3.9 G/DL (2.5-4.1); GLUCOSE, SERUM 318 MG/DL (60-99)
[2016-08-08 09:43] LABS: BAND NEUTROPHILS 4 %; EOSINOPHILS 2 %; EOSINOPHILS ABSOLUTE (CALC) 0.53 10/3/uL (0.0-0.53); IMMATURE GRANS ABSOLUTE (CALC) 0.26 10/3/uL (0.0-0.11); LYMPHOCYTES 5 %; LYMPHOCYTES ABSOLUTE (CALC) 1.32 10/3/uL (0.67-4.30); METAMYELOCYTES 1 %; MONOCYTES 4 %; MONOCYTES ABSOLUTE (CALC) 1.06 10/3/uL (0.21-1.20); NEUTROPHILS ABSOLUTE (CALC) 23.23 10/3/uL (2.02-8.40); PLATELET ESTIMATE INC (ADEQUATE); SEGMENTED NEUTROPHIL (0) 84 %; TOTAL NUCLEATED CELLS 100
[2016-08-08 09:44] LABS: POLYCHROMASIA 1+ (2-5/OIF) (0-1/OIF); TEARDROP SHAPED RBCS OCC (0-2/OIF); TOXIC GRANULATION 1+; VACUOLATED NEUTROPHILES OCC
[2016-08-08 09:45] LABS: HELMET CELLS OCC (0-2/OIF); TARGET CELLS OCC (1-2/OIF) (0-1/OIF)
[2016-08-08] MEDS ORDERED: HALF81 PO (15:06)
[2016-08-08] MEDS ORDERED: MULTIVIT/MIN PO (15:06)
[2016-08-08] MEDS ORDERED: PRAVACHOL40 MG PO (15:06)
[2016-08-08] MEDS ORDERED: POTASSIUM OTC PO (15:06)
[2016-08-08] MEDS ORDERED: CARDCD240 PO (15:07)
[2016-08-08] MEDS ORDERED: CARDU2 PO (15:07)
[2016-08-08] MEDS ORDERED: PLAVIX PO (15:07)
[2016-08-08] MEDS ORDERED: TOPXL50 PO (15:08)
[2016-08-08] MEDS ORDERED: AMARYL4 PO (15:08)
[2016-08-08] MEDS ORDERED: PRIN20 PO (15:08)
[2016-08-08] MEDS ORDERED: ACTOPLUS M15 MG/850 PO (15:09)
[2016-08-08] MEDS ORDERED: ZYRTEC ALLGY10 MG PO (15:10)
[2016-08-08] MEDS ORDERED: NORV5 PO (15:10)
[2016-08-08] MEDS ORDERED: ALLEGRA180 PO (15:10)
[2016-08-08] MEDS ORDERED: BEN25 PO (15:11)
[2016-08-08] MEDS ORDERED: ZOFRAN4 PO (15:12)
[2016-08-08] MEDS ORDERED: PERCOCET 7.5/321 TAB PO (15:12)
[2016-08-08 17:32] LABS: WBC (NOT ORDERED) (RFLEX) 0 (0-5)
[2016-08-08 17:46] LABS: ASCORBIC ACID (UR NOT ORDER) NEG (NEG); BILIRUBIN, URINE NEGATIVE (NEG); KETONE, URINE 80 MG/DL (NEG); LEUKOCYTE ESTERASE(NOT OR NEG (NEG)
[2016-08-09 06:44] LABS: HEMOGLOBIN 9.6 g/dL (13.6-17.8); MEAN CORPUS HGB CONC 33.2 g/dL (32.0-36.0); MEAN CORPUSCULAR HEMOGLOB 28.8 pg (26.0-34.0); MEAN CORPUSCULAR VOLUME 86.8 fL (80-100); MEAN PLATELET VOLUME 9.5 fL (9.2-13.0); PLATELET COUNT 616 10/3/uL (150-400); RBC DISTRIBUTION WIDTH 13.3 % (12.0-16.0); RED CELL COUNT 3.33 10/6/uL (4.7-6.1); WHITE BLOOD CELLS 23.7 10/3/uL (4.5-10.5)
[2016-08-09 06:46] LABS: HEMATOCRIT 28.9 % (40.0-51.0); MANUAL DIFF YES %
[2016-08-09 07:00] LABS: A/G RATIO 0.7 (0.7-1.9); ALBUMIN 2.4 G/DL (3.5-5.0); ALKALINE PHOSPHATASE 80 U/L (45-117); BUN (BLOOD UREA NITROGEN) 9 MG/DL (6-23); CALCIUM, SERUM 8.2 MG/DL (8.5-10.4); CHLORIDE, SERUM 103 MMOL/L (96-112); CO2 (CARBON DIOXIDE) 26 MMOL/L (24-34); CREATININE 0.62 MG/DL (0.70-1.30); GFR AFRICAN AMERICAN 122 ML/MIN (>=60); GFR NON AFRICAN AMERICAN 106 ML/MIN (>=60); GLOBULIN 3.6 G/DL (2.5-4.1); POTASSIUM, SERUM 4.2 MMOL/L (3.5-5.3); SGOT(AST) 17 U/L (5-40); SGPT(ALT) 20 U/L (5-65); SODIUM, SERUM 137 MMOL/L (135-148); TOTAL BILIRUBIN 0.4 MG/DL (0-1.2)
[2016-08-09 07:02] LABS: GLUCOSE, SERUM 201 MG/DL (60-99)
[2016-08-09 07:08] LABS: BAND NEUTROPHILS 1 %; LYMPHOCYTES 6 %; LYMPHOCYTES ABSOLUTE (CALC) 1.42 10/3/uL (0.67-4.30); MONOCYTES 6 %; MONOCYTES ABSOLUTE (CALC) 1.42 10/3/uL (0.21-1.20); NEUTROPHILS ABSOLUTE (CALC) 20.86 10/3/uL (2.02-8.40); PLATELET ESTIMATE INC (ADEQUATE); SEGMENTED NEUTROPHIL (0) 87 %; TOTAL NUCLEATED CELLS 100
[2016-08-09 07:09] LABS: RBC MORPHOLOGY NORM (NORMAL); TOXIC GRANULATION 1+
[2016-08-10 04:26] LABS: BASOPHILS 0.2 %; BASOPHILS ABSOLUTE 0.04 10/3/uL (0.0-0.16); EOSINOPHILS 1.8 %; EOSINOPHILS ABSOLUTE 0.36 10/3/uL (0.0-0.53); HEMATOCRIT 27.8 % (40.0-51.0); HEMOGLOBIN 9.2 g/dL (13.6-17.8); IMMATURE GRANULOCYTES 0.3 %; IMMATURE GRANULOCYTES ABSOLUTE 0.07 10/3/uL (0.0-0.11); LYMPHOCYTES 8.6 %; LYMPHOCYTES ABSOLUTE 1.74 10/3/uL (0.67-4.30); MANUAL DIFF NO %; MEAN CORPUS HGB CONC 33.1 g/dL (32.0-36.0); MEAN CORPUSCULAR HEMOGLOB 29.2 pg (26.0-34.0); MEAN CORPUSCULAR VOLUME 88.3 fL (80-100); MEAN PLATELET VOLUME 9.7 fL (9.2-13.0); MONOCYTES 7.2 %; MONOCYTES ABSOLUTE 1.45 10/3/uL (0.21-1.20); NEUTROPHILS 81.9 %; NEUTROPHILS ABSOLUTE 16.46 10/3/uL (2.02-8.40); PLATELET COUNT 611 10/3/uL (150-400); RBC DISTRIBUTION WIDTH 13.2 % (12.0-16.0); RED CELL COUNT 3.15 10/6/uL (4.7-6.1); WHITE BLOOD CELLS 20.1 10/3/uL (4.5-10.5)
[2016-08-10 04:37] LABS: BUN (BLOOD UREA NITROGEN) 10 MG/DL (6-23); CALCIUM, SERUM 8.6 MG/DL (8.5-10.4); CHLORIDE, SERUM 100 MMOL/L (96-112); CO2 (CARBON DIOXIDE) 29 MMOL/L (24-34); CREATININE 0.59 MG/DL (0.70-1.30); GFR AFRICAN AMERICAN 125 ML/MIN (>=60); GFR NON AFRICAN AMERICAN 108 ML/MIN (>=60); GLUCOSE, SERUM 158 MG/DL (60-99); POTASSIUM, SERUM 3.8 MMOL/L (3.5-5.3); SODIUM, SERUM 135 MMOL/L (135-148)
[2016-08-11 04:08] LABS: BASOPHILS 0.1 %; BASOPHILS ABSOLUTE 0.01 10/3/uL (0.0-0.16); EOSINOPHILS ABSOLUTE 0.37 10/3/uL (0.0-0.53); HEMATOCRIT 26.4 % (40.0-51.0); HEMOGLOBIN 8.7 g/dL (13.6-17.8); IMMATURE GRANULOCYTES 0.6 %; IMMATURE GRANULOCYTES ABSOLUTE 0.07 10/3/uL (0.0-0.11); LYMPHOCYTES 10.7 %; LYMPHOCYTES ABSOLUTE 1.33 10/3/uL (0.67-4.30); MEAN CORPUSCULAR HEMOGLOB 28.8 pg (26.0-34.0); MEAN CORPUSCULAR VOLUME 87.4 fL (80-100); MEAN PLATELET VOLUME 9.7 fL (9.2-13.0); MONOCYTES 6.1 %; MONOCYTES ABSOLUTE 0.75 10/3/uL (0.21-1.20); NEUTROPHILS 79.5 %; NEUTROPHILS ABSOLUTE 9.85 10/3/uL (2.02-8.40); PLATELET COUNT 574 10/3/uL (150-400); RBC DISTRIBUTION WIDTH 12.9 % (12.0-16.0); RED CELL COUNT 3.02 10/6/uL (4.7-6.1); WHITE BLOOD CELLS 12.4 10/3/uL (4.5-10.5)
[2016-08-11 04:09] LABS: MANUAL DIFF NO %
[2016-08-11 04:20] LABS: BUN (BLOOD UREA NITROGEN) 10 MG/DL (6-23); CALCIUM, SERUM 7.9 MG/DL (8.5-10.4); CHLORIDE, SERUM 97 MMOL/L (96-112); CO2 (CARBON DIOXIDE) 29 MMOL/L (24-34); CREATININE 0.61 MG/DL (0.70-1.30); GFR AFRICAN AMERICAN 123 ML/MIN (>=60); GFR NON AFRICAN AMERICAN 106 ML/MIN (>=60); GLUCOSE, SERUM 163 MG/DL (60-99); POTASSIUM, SERUM 3.7 MMOL/L (3.5-5.3); SODIUM, SERUM 131 MMOL/L (135-148)
[2016-08-11 14:22] LABS: AMYLASE BODY FLUID 489 U/L
[2016-08-11 18:14] LABS: BD FL SOURCE (NOT ORD) JP DRAIN
[2016-08-12 04:27] LABS: BASOPHILS 0.3 %; BASOPHILS ABSOLUTE 0.03 10/3/uL (0.0-0.16); EOSINOPHILS 9.5 %; EOSINOPHILS ABSOLUTE 0.99 10/3/uL (0.0-0.53); HEMATOCRIT 26.1 % (40.0-51.0); HEMOGLOBIN 8.6 g/dL (13.6-17.8); IMMATURE GRANULOCYTES 0.6 %; IMMATURE GRANULOCYTES ABSOLUTE 0.06 10/3/uL (0.0-0.11); LYMPHOCYTES 15.8 %; LYMPHOCYTES ABSOLUTE 1.64 10/3/uL (0.67-4.30); MEAN CORPUSCULAR HEMOGLOB 28.6 pg (26.0-34.0); MEAN CORPUSCULAR VOLUME 86.7 fL (80-100); MEAN PLATELET VOLUME 9.8 fL (9.2-13.0); MONOCYTES 8.9 %; MONOCYTES ABSOLUTE 0.92 10/3/uL (0.21-1.20); NEUTROPHILS 64.9 %; NEUTROPHILS ABSOLUTE 6.74 10/3/uL (2.02-8.40); PLATELET COUNT 586 10/3/uL (150-400); RBC DISTRIBUTION WIDTH 12.9 % (12.0-16.0); RED CELL COUNT 3.01 10/6/uL (4.7-6.1); WHITE BLOOD CELLS 10.4 10/3/uL (4.5-10.5)
[2016-08-12 04:28] LABS: MANUAL DIFF NO %
[2016-08-12 04:49] LABS: CALCIUM, SERUM 7.8 MG/DL (8.5-10.4); CHLORIDE, SERUM 95 MMOL/L (96-112); CO2 (CARBON DIOXIDE) 32 MMOL/L (24-34); CREATININE 0.56 MG/DL (0.70-1.30); GFR AFRICAN AMERICAN 128 ML/MIN (>=60); GFR NON AFRICAN AMERICAN 110 ML/MIN (>=60); GLUCOSE, SERUM 168 MG/DL (60-99); POTASSIUM, SERUM 3.3 MMOL/L (3.5-5.3); SODIUM, SERUM 130 MMOL/L (135-148)
[2016-08-12 04:53] LABS: BUN (BLOOD UREA NITROGEN) 5 MG/DL (6-23)
[2016-08-13 04:59] LABS: BASOPHILS 0.3 %; BASOPHILS ABSOLUTE 0.03 10/3/uL (0.0-0.16); EOSINOPHILS 7.4 %; EOSINOPHILS ABSOLUTE 0.72 10/3/uL (0.0-0.53); HEMOGLOBIN 9.3 g/dL (13.6-17.8); IMMATURE GRANULOCYTES 0.6 %; IMMATURE GRANULOCYTES ABSOLUTE 0.06 10/3/uL (0.0-0.11); LYMPHOCYTES 11.4 %; LYMPHOCYTES ABSOLUTE 1.11 10/3/uL (0.67-4.30); MEAN CORPUS HGB CONC 33.2 g/dL (32.0-36.0); MEAN CORPUSCULAR HEMOGLOB 28.7 pg (26.0-34.0); MEAN CORPUSCULAR VOLUME 86.4 fL (80-100); MEAN PLATELET VOLUME 9.9 fL (9.2-13.0); MONOCYTES 12.7 %; MONOCYTES ABSOLUTE 1.23 10/3/uL (0.21-1.20); NEUTROPHILS 67.6 %; NEUTROPHILS ABSOLUTE 6.56 10/3/uL (2.02-8.40); PLATELET COUNT 626 10/3/uL (150-400); RED CELL COUNT 3.24 10/6/uL (4.7-6.1); WHITE BLOOD CELLS 9.7 10/3/uL (4.5-10.5)
[2016-08-13 05:03] LABS: MANUAL DIFF NO %
[2016-08-13 05:07] LABS: BUN (BLOOD UREA NITROGEN) 4 MG/DL (6-23); CALCIUM, SERUM 8.2 MG/DL (8.5-10.4); CHLORIDE, SERUM 97 MMOL/L (96-112); CO2 (CARBON DIOXIDE) 31 MMOL/L (24-34); GFR AFRICAN AMERICAN 124 ML/MIN (>=60); GFR NON AFRICAN AMERICAN 107 ML/MIN (>=60); POTASSIUM, SERUM 3.5 MMOL/L (3.5-5.3); SODIUM, SERUM 136 MMOL/L (135-148)
[2016-08-13 05:08] LABS: GLUCOSE, SERUM 208 MG/DL (60-99)
[2016-08-14] MEDS ORDERED: NORCO1 TA2 PO (07:52)
[2016-08-14] MEDS ORDERED: DURICEF PO (07:53)
[2016-08-20] MEDS ORDERED: TRESIBA FL100 UNIT/1 SC (15:48)
[2016-08-20] MEDS ORDERED: PR25 PO (15:57)
[2016-08-30] MEDS ORDERED: REG PO (09:21)
[2016-08-30] MEDS ORDERED: GLUCPH8 PO (09:22)
[2016-08-30] MEDS ORDERED: MIRALAX POWDER1 PKT PO (09:23)
[2016-09-06] MEDS ORDERED: NEUR300 PO (15:25)
[2016-09-06] MEDS ORDERED: LEVEMIR SC (15:27)
[2016-09-06] MEDS ORDERED: NOVOLOG SC ×2 (15:27→15:29)
[2016-09-06] MEDS ORDERED: PEP20 PO (15:29)
[2016-09-06] MEDS ORDERED: ULTRAM50 PO (15:30)
[2016-09-27] MEDS ORDERED: ZYRTEC ALLGY10 MG PO (08:59)
[2016-10-04] MEDS ORDERED: LEVAQUIN750 MG PO (15:45)
[2016-10-04] MEDS ORDERED: FLAG500TAB PO (15:45)
[2016-10-08] MEDS ORDERED: ASAB PO (15:12)
== END 2016-08-14 10:01 | disposition home or self-care (01) | DRG 921 ==
LOC: 4EA 06:51
PROVIDERS: Emergency Medicine; Surgery; Thoracic Surgery (Cardiothoracic Vascular Surgery)
DX: K91.870 Postprocedural hematoma of a digestive system organ or structure following a digestive system procedure (principal); I10 Essential (primary) hypertension; E11.9 Type 2 diabetes mellitus without complications; I25.10 Atherosclerotic heart disease of native coronary artery without angina pectoris; Z95.1 Presence of aortocoronary bypass graft
CPT/HCPCS: 36415; 71010; 74176; 74177; 80048; 80053; 80202; 81001; 82150; 82962; 83690; 85025; 86850; 86900; 86901; 86920; 87040; 87070; 87205; A9270-GY; C9113; J1170; J1200; J2405; J2543; J2550; J3370; Q9967